=== PATIENT | male | born 2000 | race Caucasian/White ===

== ENCOUNTER 2018-02-28 19:01 | Emergency (ER) | payer OTHER, SELFPAY ==
[2018-02-28 19:02] VITALS: BP 135/82; PULSE 71; RESP 16; TEMP 36.5; O2SAT 99; BMI 23.7
--- NOTE | 2018-02-28 19:17 | ED.VISSUMM ---
- ER Visit Summary Date of Service: 02/28/18 Chief Complaint: Chin laceration History of Present Illness: The patient is a 17 M [employer] [facility]. He is a wide heavy duty diesel mechanic. Patient was running and got hit in his left chong with another player's head. No LOC. No dental injury. Denies other complaints. This occurred within the last hour. His tetanus status is up-to-date. Physical Examination: A well-appearing young male. Vital signs are stable. HEENT exam pupils round reactive light. He has a 1 inch chin laceration left side of his chin. No dental trauma. No malocclusion. No jaw swelling or deformity. This will need repaired. C-spine nontender. Lungs clear to auscultation bilaterally. Heart regular rate and rhythm no murmur. Chest wall nontender. Abdomen soft nontender. Neurologic exam normal. Extremities normal. Test Results: None Emergency Department Course and Treatment: Let will be applied to the wound. There will be cleaned. Locally anesthetized with lidocaine. Washed and explored. Closed using 5-0 Ethilon suture. Strains involved skin and subcu tissue. No foreign body. I explored the wound. Irrigated out. Local anesthetic with length and subcu lidocaine. Closed using 3 simple interrupted 5-0 Ethilon sutures. Proper hemostasis wound closure obtained. Explained to patient wound care. Treatment Plan: Wound care. Sutures out in 1 week. Watch for any signs of infection. Disposition: Discharge Impression: Acute left chong laceration of 2.5 cm with ER repair. This note was generated with [employer] dictation software. It may contain incorrect words, spelling, and punctuation that were not noted in review of the chart prior to signing ED Disposition - Plan for ED Patient: Disposition: Home or Assisted Living Chief Complaint: Laceration Instructions: ED Laceration Chin Sutr Tape Additional Instructions: Follow-up with the student clinic at the [facility] to have the sutures removed in 1 week. Ice to her chin. Keep the wound clean. Clean daily with soap and water or peroxide and water. Watch for any signs of infection.
--- NOTE | 2018-02-28 19:19 | ED.DEP ---
ED Disposition - Plan for ED Patient: Disposition: Home or Assisted Living Chief Complaint: Laceration Instructions: ED Laceration Chin Sutr Tape Additional Instructions: Follow-up with the student clinic at the [facility] to have the sutures removed in 1 week. Ice to her chin. Keep the wound clean. Clean daily with soap and water or peroxide and water. Watch for any signs of infection.
[2018-02-28] MEDS: Lidocaine/Epi/Tetracaine 50 ML 1 APPLIC TOPICAL (19:22)
--- NOTE | 2018-02-28 20:30 | DCINST.ED_ITS ---
ED Disposition - Plan for ED Patient: Disposition: Home or Assisted Living Chief Complaint: Laceration Instructions: ED Laceration Chin Sutr Tape Additional Instructions: Follow-up with the student clinic at the [facility] to have the sutures removed in 1 week. Ice to her chin. Keep the wound clean. Clean daily with soap and water or peroxide and water. Watch for any signs of infection.
== END 2018-02-28 20:51 | disposition home or self-care (01) ==
PROVIDERS: Emergency Provider Emergency Medicine
DX: S01.81XA Laceration without foreign body of other part of head, initial encounter (principal); W21.81XA Striking against or struck by football helmet, initial encounter; Y93.61 Activity, american tackle football; Y92.214 College as the place of occurrence of the external cause; Y99.8 Other external cause status
CPT/HCPCS: 12001; 99284